=== PATIENT | female | born 1985 | race Two or more races ===

== ENCOUNTER 2018-05-20 16:00 | Emergency (ER) | payer SELFPAY ==
[~2018-05-20] VITALS: Ht 162.6 cm; Wt 68.9 kg
[2018-05-20] MEDS ORDERED: LORAZEPAM INJ 2 MG/ML VIAL IM ONE (16:30)
--- NOTE | 2018-05-20 18:00 | NUR ---
BIB [facility] [employer], C/O JAW/MOUTH PAIN, TRANSIENT CAUGHT TRESPASSING IN BUILDING. ALSO HERE FOR PSYCH EVAL. PT SEEN & EVAL'D BY DR. ACE. AAOX3, VSS, RR EVEN & UNLABORED. WILL CONT TO MONITOR.
[2018-05-20] MEDS ORDERED: LORAZEPAM INJ 2 MG/ML VIAL ONE (18:18)
[2018-05-20 18:22] LABS: APPEARANCE,URINE Clear (CLEAR); BILIRUBIN,URINE MODERATE (NEGATIVE); BLOOD, URINE Trace-intact Ery/uL (NEGATIVE); COLOR,URINE Yellow (YELLOW); KETONES,URINE 80 (NEGATIVE); LEUKOCYTE ESTERASE ,URINE Negative (NEGATIVE); NITRITE, URINE Negative (NEGATIVE); PH,URINE 5.5 (5.0-8.0); PROTEIN,URINE 100 mg/dl (NEGATIVE); UGLUCOSE Negative (NEGATIVE)
[2018-05-20 18:33] LABS: BACTERIA,URINE Few /HPF (None Seen); SQUAMOUS EPITHELIAL CELL,UR Few /HPF (None Seen); WBC,URINE 0-2 /HPF (0-3)
--- NOTE | 2018-05-20 19:44 | NUR ---
Patient discharged to home in stable condition. Ambulatory and stable. Written and verbal after care instructions given. Patient verbalizes understanding of instruction.
[2018-05-20 19:47] VITALS: BP 112/77
== END 2018-05-20 19:48 | disposition home or self-care (01) ==
LOC: ER 16:03
DX: F15.10 Other stimulant abuse, uncomplicated (principal); R45.1 Restlessness and agitation
CPT/HCPCS: 81001; 84703; 96372; 99283; A4606; J2060; 81000-TC